=== PATIENT | female | born 1945 | race Caucasian/White ===

== ENCOUNTER 2019-01-17 11:58 | Outpatient (CLI) | payer MEDICARE ==
--- NOTE | 2019-01-17 13:38 | ULT ---
EXAM: Carotid vascular duplex with color and spectral Doppler imaging: HISTORY: Left common carotid artery bruit COMPARISON: None FINDINGS: Minimal visible plaque and intimal thickening. Right ICA: PSV: 221 cm/s EDV: 63 cm/s ICA/CCA ratio: 2.2 Left ICA: PSV: 111 cm/s EDV: 31 cm/s ICA/CCA ratio: 0.8 Antegrade flow is seen in both vertebral arteries.. IMPRESSION: Moderate 50-69% stenosis of the right ICA.
== END 2019-01-17 11:59 | disposition home or self-care (01) ==
LOC: BICULT 11:58
PROVIDERS: ATTEND Family Medicine
DX: R09.89 Other specified symptoms and signs involving the circulatory and respiratory systems (principal); I65.21 Occlusion and stenosis of right carotid artery
CPT/HCPCS: 36415; 80053; 80061; 93880

== ENCOUNTER 2019-02-14 13:02 | Outpatient (CLI) | payer MEDICARE ==
[~2019-02-14 13:02] MED LIST: Iopamidol 370 76% 100 ML VIAL ONE
--- NOTE | 2019-02-14 16:15 | CT ---
CT ANGIOGRAM OF NECK PERFORMED WITH CONTRAST ENHANCEMENT WITH 3d RECONSTRUCTIONS: 02/14/19 HISTORY: Moderate stenosis demonstrated in the right internal carotid artery on recent ultrasound. COMPARISON: Ultrasound study of 01/17/19. Lung apices show chronic change with changes that are compatible with a mosaic lung pattern most like ly on the basis of air trapping. The thyroid gland is normal in appearance. There is no significant j ugular chain adenopathy. The parotid and submandibular gland regions appear unremarkable. Parapharyngeal spaces appear clears. Visualized sinuses also appear clear. Angiographic portion of this study yielded a good exam. There is a separate origin of the left common carotid artery from the aortic arch. The vertebral arteries are codominant. On the right side, the right common carotid artery is normal in caliber. There is very dense calcifie d plaque at the origin of the right internal carotid artery making the degree of stenosis difficult t o estimate but would estimate approximately 60 to70% stenosis by NASCET criteria. There is mild narro wing of the external carotid artery. On the left side, there is also some plaque formation present which is much less pronounced than the left sided findings. There is no significant stenosis of the left internal carotid artery or external carotid artery. IMPRESSION: Moderate stenosis of the origin of the right internal carotid artery associated with dense calcified plaque formation. POS: MAHAD
== END 2019-02-14 13:03 | disposition home or self-care (01) ==
LOC: CT 13:02
PROVIDERS: ATTEND Thoracic Surgery (Cardiothoracic Vascular Surgery)
DX: I65.21 Occlusion and stenosis of right carotid artery (principal)
CPT/HCPCS: 70498; 82565; Q9967

== ENCOUNTER 2019-02-15 05:52 | Inpatient (IN) | payer MEDICARE ==
[2019-02-15] MEDS ORDERED: Protamine Sulfate 50 MG/5 ML VIAL ONE (06:39)
[2019-02-15] MEDS ORDERED: Heparin 5,000 UNITS/ML VIAL ONE (06:39)
[2019-02-15] MEDS ORDERED: Fentanyl 100 MCG/2 ML VIAL ONE ×2 (06:49→09:42)
[2019-02-15] MEDS ORDERED: Midazolam HCl 2 mg/2 ml Vial ONE (07:07)
[2019-02-15] MEDS ORDERED: Ondansetron ODT 4 MG TAB ONE (07:07)
[2019-02-15 07:22] LABS: Anion Gap 15 mmol/L (10-20); BUN (Urea Nitrogen) 17 mg/dL (9.8-20.1); Calc. Creatinine Clearance 68 mL/min (70-130); Carbon Dioxide 21 mmol/L (23-31); Chloride 108 mmol/L (98-107); Estimated GFR-MDRD 66; Glucose 103 mg/dL (83-110); Potassium 4.7 mmol/L (3.5-5.1); Sodium 139 mmol/L (136-145)
[2019-02-15] MEDS ORDERED: Clindamycin/D5W 900 mg/50 ml Premix Bag ONE (07:35)
[2019-02-15 07:36] LABS: Hemoglobin 10.5 g/dL (12.0-16.0); Mean Corpuscular HGB CONC 31.8 g/dL (32.0-36.0); Mean Corpuscular Hemoglobin 24.6 pg (27.0-31.0); Mean Corpuscular Volume 77.3 fL (78.0-98.0); Mean Platelet Volume 7.5 fL (7.4-10.4); Platelet Count 312 thou/uL (130-400); RBC Distribution Width 14.5 % (11.5-14.5); Red Blood Cell (RBC) Count 4.27 mill/uL (4.20-5.40); White Blood Cell (WBC) Count 5.4 thou/uL (4.8-10.8)
[2019-02-15] MEDS ORDERED: Levofloxacin 500 mg/D5W 100 ml Premix Bag ONE (07:36)
--- NOTE | 2019-02-15 10:05 | OP ---
DATE OF PROCEDURE: 02/15/2019 PREOPERATIVE DIAGNOSIS: Symptomatic right carotid stenosis. PROCEDURE PERFORMED: Right carotid endarterectomy with Bovine patch angioplasty. ANESTHESIA: General. ESTIMATED BLOOD LOSS: 100. DESCRIPTION OF PROCEDURE: After adequate anesthesia had been obtained, the patient was prepped and draped. Ultrasound had been used to lauren the carotid bifurcation. Incision was made. External jugular vein was mobilized to allow access to the common carotid artery, which was surprisingly deep in her long neck. Common internal and external carotid arteries were mobile. Hypoglossal nerve was avoided. 7500 units of heparin were given and ACT level was greater than 300 seconds. Clamps were applied. Arteriotomy performed and the area irrigated thoroughly. There was good backflow from the internal carotid artery. A 10-Martiniquais shunt was placed. Endarterectomy was then performed with nice tapering distally. The area was again irrigated. Any loose debris removed. 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 It did backbleed during the case. Following the Bovine pericardial patch being prepared, it was sutured to close the arteriotomy. Prior to completing the suture line, vessels were backflushed and forward flushed and the area was irrigated with heparin saline. Flow was then restored up the external and then internal carotid artery. Protamine was given to partially reverse the heparin, and after adequate hemostasis had been obtained, the wound was closed in layers. Job ID: [id number]
[2019-02-15] MEDS ORDERED: Fentanyl 100 MCG/2 ML VIAL SLOW IVP PRN ×2 (11:30)
[2019-02-15] MEDS ORDERED: Nitroglycerin 50 MG/250 ML BOT 250 ML IVPB PRN (11:30)
[2019-02-15] MEDS ORDERED: HYDROcodone/Acetaminophen 5/325 mg Tablet PO PRN ×2 (11:30)
[2019-02-15] MEDS ORDERED: Acetaminophen 325 MG TAB PO PRN (11:30)
[2019-02-15] MEDS ORDERED: Promethazine HCl 25 MG/ML VIAL SLOW IVP PRN (11:30)
[2019-02-15] MEDS ORDERED: hydrALAZINE 20 MG/ML VIAL SLOW IVP PRN (11:30)
[2019-02-15] MEDS ORDERED: Norepinephrine 8 MG/0.9% NS 250 ML IVPB PRN (11:30)
[2019-02-15] MEDS ORDERED: Ondansetron PF 4 MG/2 ML Vial IVP PRN (11:30)
[2019-02-15] MEDS ORDERED: Ondansetron PF 4 MG/2 ML Vial ONE (11:31)
[2019-02-15] MEDS ORDERED: PROPOFOL 200 MG/20 ML VIAL ONE (11:31)
[2019-02-15] MEDS ORDERED: Lidocaine 1% PF 5 ML VIAL ONE (11:31)
[2019-02-15] MEDS ORDERED: Dexamethasone 20 MG/5 ML VIAL ONE (11:31)
[2019-02-15] MEDS ORDERED: Rocuronium Bromide 10 MG/ML (10ML VIAL) ONE (11:31)
[2019-02-15] MEDS ORDERED: Glycopyrrolate 0.2 MG/ML 5 ML SYRINGE ONE (11:31)
[2019-02-15 11:38] VITALS: BMI 25.1
[2019-02-15] MEDS: Sodium Chloride 0.9% 1,000 ML IV SCH ×2 (12:11→22:04)
[2019-02-16 04:35] VITALS: TEMP 98.5
[2019-02-16] MEDS ORDERED: Aspirin Chewable 81 MG TAB PO SCH (09:00)
--- NOTE | 2019-02-16 12:08 | DIS ---
DATE OF ADMISSION: 02/15/2019 DATE OF DISCHARGE: 02/16/2019 HOSPITAL COURSE: The patient was admitted on 02/15, underwent right carotid endarterectomy for symptomatic severe right carotid stenosis. Postoperatively, she had a slight palsy in her right lower lip area, but otherwise was neurologically intact. Her incision was doing well with minimal swelling. She will be discharged on her home medicines with stopping her Plavix. Discharge and followup instructions have been given and questions answered. Job ID: [id number]
== END 2019-02-16 09:10 | disposition home or self-care (01) | DRG 39 ==
LOC: SURG A 05:52 → CCU 10:56
PROVIDERS: ADMIT Thoracic Surgery (Cardiothoracic Vascular Surgery); ATTEND Thoracic Surgery (Cardiothoracic Vascular Surgery)
PROC: 03CK0ZZ Extirpation of Matter from Right Internal Carotid Artery, Open Approach (ICD-10-PCS; principal; 2019-02-15)
PROC: 03UK0KZ Supplement Right Internal Carotid Artery with Nonautologous Tissue Substitute, Open Approach (ICD-10-PCS; 2019-02-15)
DX: I65.21 Occlusion and stenosis of right carotid artery (principal); Z88.1 Allergy status to other antibiotic agents; Z88.2 Allergy status to sulfonamides; Z88.8 Allergy status to other drugs, medicaments and biological substances; Z90.710 Acquired absence of both cervix and uterus; Z90.12 Acquired absence of left breast and nipple
CPT/HCPCS: 36415; 70498; 80048; 82565; 85027; 93005; 93010; J0690; J1100; J1642; J1644; J1956; J2001; J2250; J2405; J2704; J2720; J3010; J3490; Q0162; Q9967

== ENCOUNTER 2020-02-28 13:59 | Outpatient (CLI) | payer MEDICARE ==
--- NOTE | 2020-02-28 14:41 | ULT ---
Exam: Thyroid ultrasound HISTORY: Thyroid nodule COMPARISON: None FINDINGS: Cardiac isthmus: 0.42 cm Right thyroid lobe: 1.5 x 1.5 x 3.8 cm Left thyroid lobe: 1.5 x 3.6 x 1.3 cm Thyroid nodules: Right thyroid lobe: Hypoechoic nodule in the midpole right thyroid lobe measures 1.0 x 1.0 x 0.5 cm. Second adjacent similar echotexture nodule measures 0.5 x 0.3 x 0.4 cm Left thyroid lobe: Hypoechoic nodule in the left thyroid lobe measures 0.4 x 0.5 x 0.3 cm IMPRESSION: Subcentimeter hypoechoic solid nodules in the left and right thyroid lobe. TI-RADS level TR 4, modera tely suspicious. Follow-up imaging in one year. Transcribed Date/Time: 02/28/2020 2:52 PM
== END 2020-02-28 14:00 | disposition home or self-care (01) ==
LOC: BICULT 13:59
PROVIDERS: ATTEND Internal Medicine Cardiovascular Disease
DX: E04.2 Nontoxic multinodular goiter (principal)
CPT/HCPCS: 76536